=== PATIENT | male | born 1970 | race Caucasian/White ===

== ENCOUNTER 2021-05-24 17:09 | Emergency (ER) | payer OTHER, SELFPAY ==
[2021-05-24] VITALS (11 sets, daily range): BP systolic 104–115; BP diastolic 50–62; PULSE 49–83; RESP 12–22; TEMP 36.7; O2SAT 97–100
--- NOTE | ~2021-05-24 | XR_ITS ---
EXAMINATION: XR chest 2V DATE: 05/24/2021 17:45 INDICATION: Chest pain radiating to the abdomen TECHNIQUE: PA and lateral views of the chest were obtained. COMPARISON: None FINDINGS: Linear bandlike opacity in the right middle lobe most consistent with discoid atelectasis. No other a irspace opacities, pulmonary edema, pleural effusion or pneumothorax. Borderline heart size. Coronary artery stenting. Mild thoracic spondylosis. IMPRESSION: 1. Bandlike opacity in the right middle lobe most consistent with discoid atelectasis. 2. Borderline heart size with prior coronary artery stenting. Reviewed, dictated and finalized at location . [employer] IMPRESSION: 1. Bandlike opacity in the right middle lobe most consistent with discoid atele ctasis. 2. Borderline heart size with prior coronary artery stenting.
--- NOTE | 2021-05-24 17:28 | ECG_ITS ---
Measurements Intervals [place] Rate: 57 P: 12 [place]: 156 QRS: -50 QRSD: 90 T: 13 QT: 404 QTc: 396 Interpretive Statements SINUS BRADYCARDIA LEFT AXIS DEVIATION ANTEROSEPTAL INFARCT, AGE INDETERMINATE BASELINE ARTIFACT- I, III, AVL, AVF ABNORMAL ECG Electronically Signed On 05-25-2021 17:40:30 [employer] by Navi Gaxiola D.O.
[2021-05-24 17:57] LABS: Basophils Absolute Auto 0.1 K/mm3 (0.0-0.1); Basophils Percent Auto 0.5 % (0.2-1.2); Eosinophils Absolute Auto 0.2 K/mm3 (0-0.3); Eosinophils Percent Auto 1.9 % (0-4.4); Hematocrit 40.5 % (42.0-52.0); Hemoglobin 13.7 g/dL (14.0-18.0); Immature Granulocyte Absolute 0.03 K/mm3 (0.00-0.031); Immature Granulocyte Percent A 0.3 % (0-0.5); Lymphocytes Absolute Auto 1.14 K/mm3 (0.9-3.2); Lymphocytes Percent Auto 11.9 % (18.3-44.2); Mean Corpuscular HGB Conc 33.8 g/dl (32-36); Mean Corpuscular Hemoglobin 30.2 pg (26-34); Mean Corpuscular Volume 89.2 fl (80-100); Mean Platelet Volume 9.7 fl (7.4-10.4); Monocytes Absolute Auto 0.6 K/mm3 (0.1-0.6); Monocytes Percent Auto 5.8 % (2.6-8.5); Neutrophils Absolute Auto 7.7 K/mm3 (1.3-6.7); Neutrophils Percent Auto 79.6 % (45.5-73.1); Platelet Count Result 196 k/mm3 (150-375); Red Blood Count 4.54 M/mm3 (4.6-6.20); Red Cell Distribution Width 11.7 % (11.5-14.5); White Blood Count 9.6 K/mm3 (4.5-10.0)
[2021-05-24 18:07] LABS: Alanine Aminotransferase 38 U/L (4-50); Albumin Level 4.1 g/dL (3.5-5.1); Alkaline Phosphatase 107 U/L (38-126); Anion Gap 4 mmol/L (8-16); Aspartate Amino Transferase 40 U/L (17-59); Bilirubin,Total 0.6 mg/dL (0.2-1.3); Blood Urea Nitrogen 19 mg/dL (9-20); Calcium 8.8 mg/dL (8.4-10.2); Carbon Dioxide 29 mmol/L (22-30); Chloride 100 mmol/L (98-107); Estimated CRCL calculation 58 ml/min; Estimated Glomerular Filt Rate 46; Glucose 344 mg/dL (65-110); Lipase 36 U/L (23-300); Potassium 4.5 mmol/L (3.4-5.0); Sodium 133 mmol/L (137-145)
[2021-05-24 18:12] LABS: Prothrombin Time 12.8 Seconds (11.1-14.7)
[2021-05-24 18:13] LABS: Partial Thromboplastin Time 26.9 SECONDS (22.3-36.8)
[2021-05-24 18:18] LABS: Troponin I < 0.012 ng/mL (0.000-0.034)
--- NOTE | 2021-05-24 18:21 | PC.NURSE ---
Patient reports feeling a lot better. Patient no longer pale or diaphoretic. States pain is better now.
[2021-05-24 18:45] LABS: Glucose Point of Care 307 mg/dl (65-105)
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
--- NOTE | 2021-05-24 19:20 | PC.NURSE ---
Report received from CANDY Arellano. Assumed care of patient at this time.
== END 2021-05-24 20:04 | disposition home or self-care (01) ==
PROVIDERS: Emergency Medicine; Emergency Provider Emergency Medicine; PCP Internal Medicine
DX: K90.49 Malabsorption due to intolerance, not elsewhere classified (principal); R10.13 Epigastric pain; I25.10 Atherosclerotic heart disease of native coronary artery without angina pectoris; E10.9 Type 1 diabetes mellitus without complications; E78.00 Pure hypercholesterolemia, unspecified; I10 Essential (primary) hypertension; Z79.4 Long term (current) use of insulin; Z96.41 Presence of insulin pump (external) (internal); R00.1 Bradycardia, unspecified; R94.31 Abnormal electrocardiogram [ECG] [EKG]
CPT/HCPCS: 36415; 71046; 80053; 82948; 83690; 84484; 85025; 85610; 85730; 93005; 99284